=== PATIENT | female | born 1975 | race Caucasian/White ===

== ENCOUNTER 2016-05-30 17:36 | Emergency (ER) | payer OTHER | END 2016-05-30 19:40 | disposition home or self-care (01) | LOC: ER1 17:36 | DX: M54.12 Radiculopathy, cervical region (principal); G89.29 Other chronic pain; F41.9 Anxiety disorder, unspecified; F32.9 Major depressive disorder, single episode, unspecified; F17.210 Nicotine dependence, cigarettes, uncomplicated; Z79.899 Other long term (current) drug therapy | CPT/HCPCS: 72125; 96372; 99283; J1885 ==

== ENCOUNTER 2020-06-07 18:43 | Emergency (ER) | payer OTHER ==
[~2020-06-07 18:43] MED LIST: BREO ELLIPTA 11 EACH INH; CATAPRES0.1 MG PO; CELEXA 20MG TAB20 MG PO; CLARITIN10 M2 PO; CYCLOBENZAPRINE10 MG PO; GABAPENTIN800 MG PO; IBUPROFEN800 MG PO; LISINOPRIL-HCT1 EACH PO; MULTI-VITAMIN1 EACH PO; SERTRALINE HCL25 MG PO; TRAZODONE HCL50 MG PO; VENTOLIN HFA 66.7 GM INH
[2020-06-07 20:08] LABS: HEMOGLOBIN 11.4 gm/dl (12.3-15.3); RED BLOOD COUNT 4.09 M/UL (4.00-5.10)
[2020-06-07 20:27] LABS: BUN/CREATININE RATIO 14 (0-10)
[2020-06-18] MEDS ORDERED: CLONIDINE HCL0.1 MG PO (15:19)
[2020-06-18] MEDS ORDERED: IBU800 MG PO (15:21)
[2020-06-18] MEDS ORDERED: ZOLOFT25 MG PO (15:22)
[2020-06-24] MEDS ORDERED: HYDROCODON-ACE1 EAC4 PO (08:37)
== END 2020-06-08 07:39 | disposition short-term general hospital (02) ==
LOC: ER1 18:43
PROVIDERS: Emergency Medicine
DX: T48.1X1A Poisoning by skeletal muscle relaxants [neuromuscular blocking agents], accidental (unintentional), initial encounter (principal); I10 Essential (primary) hypertension; F17.210 Nicotine dependence, cigarettes, uncomplicated; Z20.822 Contact with and (suspected) exposure to COVID-19
CPT/HCPCS: 80053; 80307; 83605; 83690; 83735; 84703; 85025; 93005; 96365; 96366; 99285; G0480; J3411; J3475; J7030; U0002

== ENCOUNTER → 2020-06-24 | Day surgery (SDC) | payer OTHER ==
[~2020-06-24] MED LIST changes: +CLONIDINE HCL0.1 MG PO; +HYDROCODON-ACE1 EAC4 PO; +IBU800 MG PO; +ZOLOFT25 MG PO
== END | disposition home or self-care (01) ==
LOC: OR 06:52
DX: G56.02 Carpal tunnel syndrome, left upper limb (principal); I10 Essential (primary) hypertension; M19.90 Unspecified osteoarthritis, unspecified site; F41.8 Other specified anxiety disorders; Z83.3 Family history of diabetes mellitus; Z82.49 Family history of ischemic heart disease and other diseases of the circulatory system; Z79.899 Other long term (current) drug therapy
CPT/HCPCS: J1100; J1885; J2001; J2250; J2405; J2704; J3010; J7120

== ENCOUNTER → 2021-01-31 | Outpatient (CLI) | payer OTHER | LOC: KOH-I 15:27 | DX: M79.672 Pain in left foot (principal); R05.9 Cough, unspecified; M54.2 Cervicalgia; M54.50 Low back pain, unspecified; M51.36 Other intervertebral disc degeneration, lumbar region; M50.322 Other cervical disc degeneration at C5-C6 level; M79.89 Other specified soft tissue disorders | CPT/HCPCS: 71046; 72040; 72070; 72100; 73630 ==